=== PATIENT | female | born 1950 | race Caucasian/White ===

== ENCOUNTER 2023-06-05 11:20 | Emergency (ER) | payer OTHER, SELFPAY ==
[2023-06-05 11:23] VITALS: BP 143/64
--- NOTE | 2023-06-05 12:09 | ED.GENMED ---
History of Present Illness
General
Chief Complaint: Musculo-Skeletal Complaint
Time Seen by Provider: 06/05/23 11:34
Travel History
Have you had any contact with someone who has COVID-19?: No
Do you have any symptoms of coronavirus? Fever > 100 degrees, chills, cough, shortness of breath, sore throat, loss of taste or smell, muscle aches, or headache?: No
History of Present Illness
History of Present Illness:
72-year-old female presents the emergency department for evaluation of right knee swelling that began upon awakening today. She has known arthritis in both knees and typically develops joint fluid on occasion. She has had difficulty ambulating due
to pain. No fevers or chills. No penetrating trauma to the site. Was hoping to see her orthopedist today for an arthrocentesis but they are not in the office that she was directed to the emergency department.
Past History
Past History
ED Past Medical History: Asthma, GERD, HTN, Hypercholesterolemia and Other (Herniated disc, impaired hearing)
ED Past Surgical History: Orthopedic and Other (Mastectomy/lumpectomy)
Social History
Tobacco: Non-smoker
Review of Systems
Review of Systems
Allergies reviewed?: Yes
All Other Systems: ROS reviewed and negative except as documented in HPI and ROS
Phy Exam
Physical Exam
Physical Exam:
GEN: Well appearing, NAD, WDWN
HEENT: Oral mucosa moist, no scleral icterus
Cardiac: Regular rate
Lung: No respiratory distress, no tachypnea
MSK: No gross deformity or injuries. Right knee effusion noted, range of motion normal in all meraz with some pain throughout flexion
Skin: Good color, no pallor or jaundice, no rashes
Neuro: AO x3, moves all extremities freely
Psych: Calm, cooperative
Course
Orders/Labs/Results
Orders:
Orders
06/05/23 12:15
Body Fluid Cell Count Urgent
What is the Body Fluid: joint
Date Specimen was Collected: 06/05/23
Time Specimen was Collected: 12:12
Comment: with DIFF
Body Fluid Crystals Urgent
What is the Body Fluid: joint
Date Specimen was Collected: 06/05/23
Time Specimen was Collected: 12:12
Fluid Culture with Gram Stain Urgent
RADHA Source: Joint Fluid
Specimen Description:
Date Specimen was Collected: 06/05/23
Time Specimen was Collected: 12:12
Vital Signs
Initial and Last Documented VS:
Initial Vital Signs
Temp Pulse Resp BP Pulse Ox
98.4 F 82 18 143/64 98
06/05/23 11:23 06/05/23 11:23 06/05/23 11:23 06/05/23 11:23 06/05/23 11:23
Last Documented Vital Signs
Temp Pulse Resp BP Pulse Ox
98.4 F 82 18 143/64 98
06/05/23 11:23 06/05/23 11:23 06/05/23 11:23 06/05/23 11:23 06/05/23 11:23
Procedures
Incision/Drainage/Joint Aspiration
Right Knee:
Anethesia: 1% Lidocaine
Preparation: cleaned with Hibiclens
Type of procedure: aspiration
Nature of site: other (joint)
How much fluid was obtained?: number in mls (17cc)
Fluid description: clear
Treatment: bandaid applied
MDM/Problems Addressed
MDM/Problems Addressed:
I discussed the potential risk of arthrocentesis with the patient including but not limited to introduction of infection, hemarthrosis, or dry tap. She request to proceed due to the hope that or improve her pain. Arthrocentesis was performed with
the lateral suprapatellar approach yielding 17 cc of clear fluid. Band-Aid and Perez wrap were immediately applied. I recommended she hold her Eliquis for the next 48 hours to minimize any bleeding risk, may resume Wednesday morning. Outpatient
orthopedic follow-up advised. Joint fluid was sent showing no evidence of crystals and no significant WBC elevation concerning for septic joint
*Critical Care Note
Total Time (30-74mins, 75-104mins- exclusive of procedures): Not Applicable
ED Attending Note
-
Portions of this chart may have been created with voice recognition software.� Occasional wrong word or��sound alike� substitutions may have occurred due to the inherent limitations of voice recognition software.
Discharge Plan
Departure
Patient Disposition: Home (Routine Discharge)
Date of Disposition: 06/05/23
Time of Disposition: 12:09
Patient with high blood pressure during this ER visit?: No
Discharge Problem:
Effusion of right knee
Instructions: Swollen Joints (DC)
Prescriptions:
No Action
atorvastatin 40 mg Tablet
40 mg PO QPM
pantoprazole 40 mg Tablet,Delayed Release (Dr/Ec)
40 mg PO DAILY
montelukast 10 mg Tablet
10 mg PO HS
Xarelto 20 mg Tablet
20 mg PO QPM
tizanidine 2 mg Tablet
4 mg PO Q8HPRN PRN (Reason: spasms)
therapeutic multivitamin Tablet
1 tab PO DAILY
oxycodone 5 mg tablet
5 mg PO QIDPRN PRN (Reason: severe pain)
polyethylene glycol 3350 [HealthyLax] 17 gram Powder In Packet
17 g PO DAILY Qty: 30 0RF
tramadol 50 mg Tablet
50 mg PO Q6HPRN PRN (Reason: mod to severe pain) Qty: 12 0RF
lidocaine 5 % Adhesive Patch,Medicated
2 patch TOPICAL BID
losartan [Cozaar] 100 mg tablet
100 mg PO DAILY Qty: 14 0RF
metoprolol succinate [Toprol XL] 50 mg tablet extended release 24 hr
50 mg PO DAILY 14 Days Qty: 14 0RF
Referrals:
Bernie Yoo MD [Family Provider] -
Interventions
Interventions:
*Risk Screen - Suicide Last Done: 06/05/23 11:36
*General Assessment Last Done: 06/05/23 11:36
*Neglect/Abuse Screening Last Done: 06/05/23 11:36
ED- Fall Risk Assessment Last Done: 06/05/23 11:36
*ED COVID-19 Vaccine History Last Done: 06/05/23 11:36
*Nursing Disposition Last Done: 06/05/23 12:32
ED-Musculoskeletal Assessment Last Done: 06/05/23 11:36
Discharge Date and Time
Discharge Date/Time: 06/05/23 12:38
[2023-06-05 12:48] LABS: Body Fluid Mononuclear 54.6 %; Body Fluid Polymorphonuclear 45.4 %; Body Fluid WBC 942 /CUMM
[2023-06-05 13:06] LABS: Body Fluid Second Tech CMB
== END 2023-06-05 12:38 | disposition home or self-care (01) ==
LOC: EMR 11:20
PROVIDERS: Physician Assistant; EMERGENCY PHYSICIAN Emergency Medicine; FAMILY PHYSICIAN Internal Medicine
DX: M25.461 Effusion, right knee (principal); J45.909 Unspecified asthma, uncomplicated; K21.9 Gastro-esophageal reflux disease without esophagitis; I10 Essential (primary) hypertension; E78.00 Pure hypercholesterolemia, unspecified
CPT/HCPCS: 99283; 20610; 87015; 87070; 87205; 89051; 89060

== ENCOUNTER → 2023-11-29 10:33 | Outpatient (REF) | payer OTHER, SELFPAY ==
[2023-11-29 12:02] LABS: ALT (SGPT) 23 U/L (0-35); AST (SGOT) 31 U/L (14-36); Albumin 4.3 g/dl (3.5-5.0); Alkaline Phosphatase 77 U/L (38-126); Direct Bilirubin 0.2 mg/dl (0.0-0.4); Total Bilirubin 1.1 mg/dl (0.2-1.3); Total Protein 6.5 g/dl (6.3-8.2)
== END ==
LOC: REG 10:33
PROVIDERS: ATTENDING PHYSICIAN Internal Medicine Gastroenterology; FAMILY PHYSICIAN Internal Medicine
DX: K86.2 Cyst of pancreas (principal)
CPT/HCPCS: 36415; 80076

== ENCOUNTER → 2023-12-22 10:19 | Outpatient (REF) | payer OTHER, SELFPAY ==
[2023-12-22 12:19] LABS: HDL Cholesterol 92 mg/dl; LDL Cholesterol, Calculated 60 mg/dl; Total Cholesterol 168 mg/dl (50-199); Triglyceride 80 mg/dl (10-149); Very Low Density Lipoprotein 16 mg/dl (0-30)
== END ==
LOC: WDC 10:19
PROVIDERS: ATTENDING PHYSICIAN Nurse Practitioner; FAMILY PHYSICIAN Internal Medicine; OTHER PHYSICIAN Nurse Practitioner; REFERRING PHYSICIAN Internal Medicine Gastroenterology
DX: Z12.31 Encounter for screening mammogram for malignant neoplasm of breast (principal); E78.00 Pure hypercholesterolemia, unspecified; K86.2 Cyst of pancreas
CPT/HCPCS: 36415; 72070; 72100; 77063; 77067; 80061

== ENCOUNTER → 2024-02-07 11:05 | Outpatient (REF) | payer OTHER, SELFPAY | LOC: PAVMRI 11:05 | PROVIDERS: ATTENDING PHYSICIAN Internal Medicine Gastroenterology; FAMILY PHYSICIAN Internal Medicine | DX: K86.2 Cyst of pancreas (principal) | CPT/HCPCS: 74183; A9575 ==

== ENCOUNTER → 2024-03-16 14:27 | Outpatient (REF) | payer OTHER, SELFPAY | LOC: RAD 14:27 | PROVIDERS: ATTENDING PHYSICIAN Nurse Practitioner; FAMILY PHYSICIAN Internal Medicine | DX: J20.9 Acute bronchitis, unspecified (principal) | CPT/HCPCS: 71046 ==

== ENCOUNTER → 2024-04-21 09:00 | Outpatient (REF) | payer OTHER, SELFPAY ==
[2024-04-21 13:41] LABS: % Basophils 0.7 % (0-2); % Immature Granulocytes 0.4 % (0-0.5); % Lymphocytes 18.3 % (20.5-51.1); % Monocytes 8.5 % (1.7-9.3); % Neutrophils 72.1 % (42.2-75.2); Absolute Basophils 0.1 10^3/uL (0-0.2); Absolute Lymphocytes 1.4 10^3/uL (1.2-3.4); Absolute Monocytes 0.7 10^3/uL (0.1-0.6); Absolute Neutrophils 5.5 10^3/uL (1.4-6.5); Hematocrit 41.8 % (37.0-47.0); Hemoglobin 13.6 g/dL (12.0-16.0); Mean Corp Hgb Conc. 32.5 g/dL (33.0-37.0); Mean Platelet Volume 10.2 fL (7.4-10.4); Nucleated Red Blood Cells % 0 %; Platelet Count 248 10^3/uL (130-400); Red Blood Cell Count 4.86 10^6/uL (4.20-5.40); Red Cell Dist. Width 13.2 % (11.5-14.5); White Blood Cell Count 7.6 10^3/uL (4.8-10.8)
[2024-04-21 14:19] LABS: ALT (SGPT) 19 U/L (0-35); AST (SGOT) 27 U/L (14-36); Albumin 4.4 g/dl (3.5-5.0); Alkaline Phosphatase 82 U/L (38-126); Blood Urea Nitrogen 16 mg/dl (7-17); Calcium 9.7 mg/dl (8.4-10.2); Carbon Dioxide 29 mmol/L (22-30); Chloride 101 mmol/L (98-107); Glucose 93 mg/dl (70-99); Potassium 4.5 mmol/L (3.5-5.1); Sodium 139 mmol/L (135-145); Total Protein 6.7 g/dl (6.3-8.2); eGFR > 60.00
[2024-04-21 14:20] VITALS: BMI 28.6
[2024-04-21 14:23] LABS: Glycohemoglobin (HgbA1c) 5.7 % (4.0-5.6)
[2024-04-21 15:12] VITALS: BMI 28.6
--- NOTE | 2024-05-03 15:04 | CM ---
Addendum entered by Janay Deleon 05/08/24 11:57:
TCB from patient.
She will not be staying with daughter in [place] now, will be local in [place].
Patient will reach out to ortho office/N[facility] if surgery plans change.
Addendum entered by Janay Deleon 05/08/24 09:56:
[facility] unable to go for 1 week.
Left VM for patient, await TCB.
Original Note:
Asked to reach out to patient re homecare post upcoming TKR.
patient is planning on staying with her daughter in [place] for 1 week.
CM explained to patient that getting a VN to come to the home may not be possible due to the short time frame.
TC to [facility], [facility], and [facility]- none of these agencies would be able to sign patient on for 1 week.
REANNA suggested possible outpatient PT centers in [place], however she stated daughter may have difficulty driving her there due to a sick family member.
Will research if patient can open at one outpatient and continue at another.
--- NOTE | 2024-05-09 08:39 | CM ---
TC from patient, she stated due to an illness in the family she will need to postpone her surgery.
Patient advised to call surgeons office.
== END ==
LOC: REG 09:00
PROVIDERS: ATTENDING PHYSICIAN Orthopaedic Surgery; FAMILY PHYSICIAN Internal Medicine; REFERRING PHYSICIAN Internal Medicine Cardiovascular Disease
DX: M17.11 Unilateral primary osteoarthritis, right knee (principal)
CPT/HCPCS: 36415; 80053; 83036; 85025; 87070

== ENCOUNTER → 2024-04-25 14:04 | Outpatient (REF) | payer OTHER, SELFPAY ==
[2024-04-25 16:28] LABS: Blood Urea Nitrogen 15 mg/dl (7-17); Calcium 9.7 mg/dl (8.4-10.2); Carbon Dioxide 26 mmol/L (22-30); Chloride 102 mmol/L (98-107); Glucose 121 mg/dl (70-99); Magnesium 1.6 mg/dl (1.6-2.3); Potassium 4.4 mmol/L (3.5-5.1); Sodium 139 mmol/L (135-145); eGFR > 60.00
== END ==
LOC: REG 14:04
PROVIDERS: ATTENDING PHYSICIAN Student in an Organized Health Care Education/Training Program; FAMILY PHYSICIAN Internal Medicine
DX: I10 Essential (primary) hypertension (principal)
CPT/HCPCS: 36415; 80048; 83735

== ENCOUNTER → 2024-05-17 14:42 | Outpatient (REF) | payer OTHER, SELFPAY | LOC: RAD 14:42 | PROVIDERS: ATTENDING PHYSICIAN Hospitalist | DX: R10.84 Generalized abdominal pain (principal) | CPT/HCPCS: 74177; Q9967 ==

== ENCOUNTER → 2024-07-20 14:51 | Outpatient (REF) | payer OTHER, SELFPAY | LOC: PAVMRI 14:51 | PROVIDERS: ATTENDING PHYSICIAN Psychiatry & Neurology Neurology; FAMILY PHYSICIAN Hospitalist | DX: M96.1 Postlaminectomy syndrome, not elsewhere classified (principal); M54.6 Pain in thoracic spine | CPT/HCPCS: 72146 ==

== ENCOUNTER → 2024-07-21 13:28 | Outpatient (REF) | payer OTHER, SELFPAY | LOC: PAVMRI 13:28 | PROVIDERS: ATTENDING PHYSICIAN Psychiatry & Neurology Neurology; FAMILY PHYSICIAN Hospitalist | DX: M96.1 Postlaminectomy syndrome, not elsewhere classified (principal); M54.16 Radiculopathy, lumbar region | CPT/HCPCS: 72158; A9575 ==

== ENCOUNTER → 2024-09-05 09:26 | Outpatient (REF) | payer OTHER, SELFPAY | LOC: EMG 09:26 | PROVIDERS: ATTENDING PHYSICIAN Psychiatry & Neurology Neurology; FAMILY PHYSICIAN Hospitalist | DX: M79.603 Pain in arm, unspecified (principal); M79.606 Pain in leg, unspecified | CPT/HCPCS: 95886; 95913 ==

== ENCOUNTER → 2024-09-27 12:11 | Outpatient (REF) | payer OTHER, SELFPAY ==
[2024-09-27 13:32] LABS: ALT (SGPT) 21 U/L (0-35); AST (SGOT) 30 U/L (14-36); Albumin 4.9 g/dl (3.5-5.0); Alkaline Phosphatase 48 U/L (38-126); Total Protein 7.3 g/dl (6.3-8.2)
[2024-09-27 13:56] LABS: Vitamin D, 25-OH*** 35.3 ng/mL (30-80)
[2024-09-27 14:27] LABS: Glycohemoglobin (HgbA1c) 5.6 % (4.0-5.6)
[2024-09-27 14:45] LABS: Folate 6.6 ng/ml (2.76-20); Vitamin B12 238 pg/ml (239-931)
[2024-09-28 12:23] LABS: Rheumatoid Agglutinin Less Than 10 IU (<10 IU)
[2024-09-28 12:46] LABS: Lyme Antibody Screen, EIA Negative (Negative)
[2024-09-28 18:38] LABS: Hepatitis B Surface Antigen Negative (Negative)
[2024-09-28 18:55] LABS: Hepatitis A Antibody, Total Negative (Negative); Hepatitis C Antibody Negative (Negative)
[2024-09-30 07:26] LABS: ANA, IgG Reflex to HEp-2 None Detected (None Detected)
[2024-10-02 07:59] LABS: SSA 52 (Ro)(ENA) Ab, IgG 2 AU/mL (0-40); SSA 60 (Ro)(ENA) Ab, IgG 0 AU/mL (0-40); SSB (La)(ENA) Ab, IgG 0 AU/mL (0-40)
[2024-10-02 08:00] LABS: HLA-B27 Negative (Negative)
== END ==
LOC: REG 12:11
PROVIDERS: ATTENDING PHYSICIAN Psychiatry & Neurology Neurology; FAMILY PHYSICIAN Hospitalist
DX: M93.1 Kienbock's disease of adults (principal); E13.42 Other specified diabetes mellitus with diabetic polyneuropathy; D51.0 Vitamin B12 deficiency anemia due to intrinsic factor deficiency; M45.0 Ankylosing spondylitis of multiple sites in spine; E72.11 Homocystinuria; D52.9 Folate deficiency anemia, unspecified; R94.6 Abnormal results of thyroid function studies; Z20.828 Contact with and (suspected) exposure to other viral communicable diseases
CPT/HCPCS: 36415; 80076; 82306; 82607; 82746; 82784; 83036; 83090; 83516; 83921; 84443; 85652; 86038; 86231; 86235; 86430; 86618; 86704; 86706; 86708; 86803; 86812; 87340